=== PATIENT | female | born 1995 | race Caucasian/White ===

== ENCOUNTER 2021-01-29 17:50 | Emergency (ER) | payer SELFPAY ==
[~2021-01-29] VITALS: Ht 160 cm; Wt 52.2 kg
[2021-01-29 18:12] VITALS: BP 101/68
--- NOTE | 2021-01-29 18:19 | NUR ---
BIBS FOR LACERATION TO BOTH THUMBS WHEN GLASS FURNITURE SHE WAS PUSHING BROKE AT HOME. WILL CONTINUE TO MONITOR THE PATIENT.
[2021-01-29] MEDS ORDERED: LIDOCAINE HCL/MPF 1% 30 ML VIAL IJ ONE (19:26)
--- NOTE | 2021-01-29 20:59 | NUR ---
DR MAURICE AT BEDSIDE PROVIDING SUTURES
== END 2021-01-29 21:26 | disposition home or self-care (01) ==
LOC: ER 17:59
DX: S61.012A Laceration without foreign body of left thumb without damage to nail, initial encounter (principal); S61.011A Laceration without foreign body of right thumb without damage to nail, initial encounter; W25.XXXA Contact with sharp glass, initial encounter; Y93.89 Activity, other specified; Y92.89 Other specified places as the place of occurrence of the external cause; Y99.8 Other external cause status
CPT/HCPCS: 12002; 99283; J3490